=== PATIENT | male | born 1985 | race Asian ===

== ENCOUNTER 2024-12-24 10:47 | Emergency (ER) | payer BC, SELFPAY ==
[2024-12-24 11:06] VITALS: BP 122/96
[2024-12-24 11:38] LABS: COVID-19 Antigen Negative (Negative)
--- NOTE | 2024-12-24 12:28 | ED.GENMED ---
History of Present Illness
General
Chief Complaint: Cold/Flu/URI Symptoms
Source: patient
Exam Limitations: none
Time Seen by Provider: 12/24/24 12:16
History of Present Illness
History of Present Illness:
39yoM with no significant past medical history presenting for evaluation of flu-like symptoms x 2 days. Symptoms include fevers, chills, body aches, fatigue, decreased appetite, and a mild cough. Patient reports some minor chest discomfort with
coughing but denies any shortness of breath. He denies any vomiting or diarrhea. He is drinking fluids and urinating normally. His son was sick with similar symptoms a few days before his symptoms began.
Phy Exam
General Physical Exam
General Presentation: well appearing and no apparent distress
General age: appears stated age
General Skin: warm and dry
General Habitus: normal
General Mental: alert
ENT Exam
ENT Exam: normocephalic
Cardiovascular Exam
Cardiovascular Exam: regular rate/rhythm and no murmur
Pulmonary Exam
Pulmonary Exam: lungs clear, no respiratory distress, no rales, no crackles, no rhonchi and no wheezing
Neurological Exam
Neurological Exam: alert
[place] Coma Scale
Eye Opening: Spontaneous
Verbal Response: Oriented
Motor Response: Obeys Commands
GCS Total Score: 15
Skin Exam
Skin Exam: normal color and warm/dry
Psychiatric Exam
Psychiatric Exam: normal mood/affect
Sepsis
Sepsis Screening
Sepsis Assessment: Sepsis Ruled Out
Sepsis Screen
Sepsis Screen: Sepsis Ruled Out
Date: 12/24/24
Time: 13:52
Course
Orders/Labs/Results
Orders:
Orders
12/24/24 11:12
COVID-19 Antigen Urgent
Source: Nasal Swab
INF RAPID [Influenza A+B Rapid Molecular] Urgent
GERHARD Source: Nasal Swab
Specimen Description:
Vital Signs
Initial and Last Documented VS:
Initial Vital Signs
Temp Pulse Resp BP Pulse Ox
100.7 F H 116 18 122/96 100
12/24/24 11:06 12/24/24 11:06 12/24/24 11:06 12/24/24 11:06 12/24/24 11:06
Last Documented Vital Signs
Temp Pulse Resp BP Pulse Ox
100.7 F H 116 18 122/96 100
12/24/24 11:06 12/24/24 11:06 12/24/24 11:06 12/24/24 11:06 12/24/24 11:06
MDM/Problems Addressed
Differential Diagnosis Includes:
39yoM here with flu-like symptoms x 2 days. C/o fevers, body aches, fatigue. Temp 100.7 on arrival with associated tachycardia. Oxygen saturation 100% on room air. He is well appearing in no distress. Exam is reassuring. Lungs CTA and respirations
non-labored. Differential diagnosis includes but is not limited to: COVID, influenza, other viral illness, less likely pneumonia given normal lung sounds
Viral testing obtained in triage and he is positive for influenza A. No indication for further workup at this time. Supportive care discussed. Advised f/u with PCP and ED return precautions discussed. Patient in agreement with plan and was
discharged in stable condition.
*Critical Care Note
Total Time (30-74mins, 75-104mins- exclusive of procedures): Not Applicable
ED Attending Note
-
Portions of this chart may have been created with voice recognition software.� Occasional wrong word or��sound alike� substitutions may have occurred due to the inherent limitations of voice recognition software.
Discharge Plan
Departure
Patient Disposition: Home (Routine Discharge)
Date of Disposition: 12/24/24
Time of Disposition: 12:30
Patient with high blood pressure during this ER visit?: No
Discharge Problem:
Influenza A
Instructions: Flu in adults - Discharge instructions
Stand Alone Forms: Return to Work
Activity Restrictions/Additional Instructions:
Take Tylenol 650mg and ibuprofen 600mg every 6 hours as needed for fevers/body aches. Drink plenty of fluids and rest.
Please follow-up with your family doctor. Return to the ER with any worsening symptoms, trouble breathing, or signs of dehydration.
Interventions
Interventions:
*Risk Screen - Suicide Last Done: 12/24/24 11:06
*General Assessment Last Done: 12/24/24 11:06
*Neglect/Abuse Screening Last Done: 12/24/24 11:06
*Nursing Disposition Last Done: 12/24/24 12:56
ED- Pulmonary Assessment Last Done: 12/24/24 12:19
Discharge Date and Time
Discharge Date/Time: 12/24/24 12:56
Print Language: MONTSERRATIAN
== END 2024-12-24 12:56 | disposition home or self-care (01) ==
LOC: EMR 10:47
PROVIDERS: EMERGENCY PHYSICIAN Emergency Medicine
DX: J10.1 Influenza due to other identified influenza virus with other respiratory manifestations (principal); Z11.52 Encounter for screening for COVID-19
CPT/HCPCS: 99282; 87502; 87811